=== PATIENT | female | born 1995 | race Caucasian/White ===

== ENCOUNTER 2017-09-08 20:33 | Emergency (ER) | payer OTHER ==
--- NOTE | 2017-09-08 21:04 | PDOC ---
Rapid Medical Evaluation Time Seen by Provider: 09/08/17 20:58 Medical Evaluation: Allergies Allergy/AdvReac Type Severity Reaction Status Date / Time No Known Allergies Allergy Verified 01/10/15 21:33 09/08/17 20:58 I have performed a brief in-person evaluation of this patient. The patient presents with a chief complaint of: weakness this afternoon. Denies dizziness, coughing sorethroat or missed menses Pertinent physical exam findings: NAD clear lungs bilaterally abdomen non tender +bowel sounds I have ordered the following: hcg The patient will proceed to the ED for further evaluation.
[2017-09-08 21:06] VITALS: BP 128/75; PULSE 86; TEMP 98.9; BMI 17.6
--- NOTE | 2017-09-08 22:16 | PDOC ---
History of Present Illness - General Chief Complaint: Weakness Stated Complaint: WEAKNESS Time Seen by Provider: 09/08/17 20:58 - History of Present Illness Initial Comments: 21-year-old female presents for evaluation of weakness 2 hours. She states she recently started taking awaking medications apedmine today. She has no other symptoms. Past medical history asthma, surgical history breast augmentation, NO KNOWN DRUG ALLERGIES. No other complaints. 09/08/17 22:13 Past History - Past Medical History Allergies/Adverse Reactions: Allergies Allergy/AdvReac Type Severity Reaction Status Date / Time No Known Allergies Allergy Verified 09/08/17 21:02 Home Medications: Ambulatory Orders Valacyclovir HCl [Valtrex -] 500 mg PO BID #6 tablet 01/10/15 COPD: No Other medical history: Pt denies - Immunization History Immunization Up to Date: Yes - Suicide/Smoking/Psychosocial Hx Smoking History: Never smoked Have you smoked in the past 12 months: No Number of Cigarettes Smoked Daily: 0 Cigars Per Day: 0 Information on smoking cessation initiated: No Hx Alcohol Use: No Drug/Substance Use Hx: No Substance Use Type: None Review of Systems - Review of Systems Comments:: GENERAL/CONSTITUTIONAL: [No fever or chills. + weakness. No weight change.] HEAD, EYES, EARS, NOSE AND THROAT: [No change in vision. No ear pain or discharge. No sore throat.] CARDIOVASCULAR: [No chest pain or shortness of breath.] RESPIRATORY: [No cough, wheezing, or hemoptysis.] GASTROINTESTINAL: [No nausea, vomiting, diarrhea or constipation. No rectal bleeding.] GENITOURINARY: [No dysuria, frequency, or change in urination.] MUSCULOSKELETAL: [No joint or muscle swelling or pain. No neck or back pain.] SKIN AND BREASTS: [No rash or easy bruising.] NEUROLOGIC: [No headache, vertigo, loss of consciousness, or loss of sensation.] PSYCHIATRIC: [No depression or anxiety.] ENDOCRINE: [No increased thirst. No abnormal weight change.] HEMATOLOGIC/LYMPHATIC: [No anemia, easy bleeding, or history of blood clots.] ALLERGIC/IMMUNOLOGIC: [No hives or skin allergy. No latex allergy.] 09/08/17 22:14 *Physical Exam - Vital Signs Last Vital Signs Temp Pulse Resp BP Pulse Ox 98.9 F 86 20 128/75 100 09/08/17 21:03 09/08/17 21:03 09/08/17 21:03 09/08/17 21:03 09/08/17 21:03 - Physical Exam Comments: GENERAL: [The patient is awake, alert, and fully oriented, in no acute distress. ] HEAD: [Normal with no signs of trauma.] EYES: [Pupils equal, round and reactive to light, extraocular movements intact, sclera anicteric, conjunctiva clear.] ENT: [Ears normal, nares patent, oropharynx clear without exudates. Moist mucous membranes.] NECK: [Normal range of motion, supple without lymphadenopathy, JVD, or masses.] LUNGS: [Breath sounds equal, clear to auscultation bilaterally. No wheezes, and no crackles.] HEART: [Regular rate and rhythm, normal S1 and S2 without murmur, rub or gallop. ] ABDOMEN: [Soft, nontender, normoactive bowel sounds. No guarding, no rebound. No masses.] EXTREMITIES: [Normal range of motion, no edema. No clubbing or cyanosis. No cords, erythema, or tenderness.] NEUROLOGICAL: [Cranial nerves II through XII grossly intact. Normal speech, normal gait.] PSYCH: [Normal mood, normal affect.] SKIN: [Warm, Dry, normal turgor, no rashes or lesions noted.] 09/08/17 22:14 ED Treatment Course - ADDITIONAL ORDERS Additional order review: Laboratory Results 09/08/17 21:11 Urine HCG, Qual Negative Medical Decision Making - Medical Decision Making At this point I see safe to discharge her home she has stable vital signs and is feeling better 09/08/17 22:14 *DC/Admit/Observation/Transfer Diagnosis at time of Disposition: Dizziness - Discharge Dispostion Disposition: HOME Condition at time of disposition: Stable Decision to Admit order: No - Referrals Referrals: Castro Galeano MD [Staff Physician] - - Patient Instructions Printed Discharge Instructions: DI for Dizziness-Nonvertigo Additional Instructions: Taking medication that you taken has caused her dizziness. It's important fetus stopped taking this medication immediately return to the emergency room if her symptoms worsen or go unresolved. It's also important fetus follow with your primary care provider in the next one to do days if he did not have one I've recommended 140 - Post Discharge Activity
== END 2017-09-08 22:16 | disposition home or self-care (01) ==
LOC: JERFT 20:33
DX: R42 Dizziness and giddiness (principal); J45.909 Unspecified asthma, uncomplicated
CPT/HCPCS: 84703; 99281-25